=== PATIENT | female | born 1945 | race African-American/Black ===

== ENCOUNTER 2016-05-26 05:24 | Observation (INO) | payer MEDICARE ==
[~2016-05-26] VITALS: Ht 157.5 cm; Wt 81.8 kg
[~2016-05-26 05:24] MED LIST: ACET500C PO; ATOR20TA15 PO; BENEPOW8 PO; DICY10CA12 PO; FLUT1SPR5 EACH NARE; HYDR25TA5 PO; LEVO25TA4 PO; MULT-207 PO; OMEP20TA PO; POLY17S PO; POTA10TA2 PO; [UNRECOGNIZED DRUG - CODE] PO; [UNRECOGNIZED DRUG - OTHER] PO
[2016-05-26] MEDS ORDERED: METOPROLOL TARTRATE 25 MG TAB PO PRN (06:15)
[2016-05-26] MEDS ORDERED: LACTATED RINGER'S 1000 ML IV SCH (06:15)
[2016-05-26] MEDS ORDERED: SODIUM CHLORID 0.9% 500 ML IV SCH (06:15)
[2016-05-26] MEDS ORDERED: INSULIN HUMAN REGULAR 1,000 UNITS/10 ML VIAL SQ PRN (06:15)
[2016-05-26] MEDS ORDERED: VANCOMYCIN 1,000 MG/NS 250 ML IV SCH ×2 (06:15)
[2016-05-26 06:48] VITALS: BP 155/77; PULSE 80; RESP 20; TEMP 97.9; O2SAT 100
[2016-05-26 06:50] LABS: AUTOMATED NEUTROPHIL # 3.3 TH/MM3 (1.8-7.7); BASOPHIL # 0.1 TH/MM3 (0-0.2); BASOPHIL % 1.5 % (0.0-2.0); EOSINOPHIL # 0.2 TH/MM3 (0-0.4); EOSINOPHIL % 3.1 % (0.0-4.0); HEMATOCRIT 39.2 % (35.0-46.0); HEMO FLAGS DIFF FINAL; LYMPH % 37.6 % (9.0-44.0); LYMPHOCYTE # 2.4 TH/MM3 (1.0-4.8); MEAN CELL VOLUME 95.6 FL (80.0-100.0); MEAN CORPUSCULAR HEMOGLOBIN 31.1 PG (27.0-34.0); MEAN CORPUSCULAR HGB CONC 32.5 % (32.0-36.0); MONO % 7.5 % (0.0-8.0); NEUT % 50.3 % (16.0-70.0); PLATELET COUNT 193 TH/MM3 (150-450); RED BLOOD COUNT 4.09 MIL/MM3 (4.00-5.30); RED CELL DISTRIBUTION WIDTH 14.2 % (11.6-17.2); WHITE BLOOD COUNT 6.5 TH/MM3 (4.0-11.0)
[2016-05-26] MEDS ORDERED: BUPIVACAINE/EPINEPHRINE 0.25% 50 ML VIAL ONE (07:36)
[2016-05-26] MEDS ORDERED: ACETAMINOPHEN 1000 MG/100 ML VIAL IV ONE (08:04)
[2016-05-26] MEDS ORDERED: MIDAZOLAM HCL 2 MG/2 ML VIAL ONE (08:04)
[2016-05-26] MEDS ORDERED: DEXAMETHASONE SOD PHOS 4 MG/ML VIAL ONE (08:05)
[2016-05-26] MEDS ORDERED: FAMOTIDINE 20 MG/2 ML VIAL ONE (08:05)
[2016-05-26] MEDS ORDERED: SUGAMMADEX SODIUM 200 MG/2 ML VIAL IV PUSH ONE ×2 (08:05)
[2016-05-26] MEDS ORDERED: ACETAMINOPHEN/HYDROcodone 325 MG/5 MG TAB PO PRN ×2 (10:00)
[2016-05-26] MEDS ORDERED: Post-op Orders (for Pharmacy) MISC XX ONE (10:00)
[2016-05-26] MEDS ORDERED: diphenhydrAMINE HCL 50 MG/ML VIAL IV PRN (10:00)
[2016-05-26] MEDS ORDERED: NALOXONE HCL 0.4 MG/ML AMP IV PRN (10:00)
[2016-05-26] MEDS ORDERED: DO NOT ADM ANY ANTICOAGULANT DRUGS XX PRN (10:00)
[2016-05-26] MEDS ORDERED: HYDROmorphone HCL PF 1 MG/ML VIAL IV PUSH PRN (10:00)
[2016-05-26] MEDS ORDERED: SODIUM CHLORIDE 0.9% FLUSH 5 ML FLUSH IVF PRN (10:00)
[2016-05-26] MEDS ORDERED: fentaNYL CITRATE 250 MCG/5 ML AMP ONE (10:09)
[2016-05-26] MEDS: LACTATED RINGER'S 1000 ML INJ 1,000 ML IV SCH ×2 (10:30→19:46)
[2016-05-26] MEDS ORDERED: *HYDROmorphone PF 1 MG VIAL PERIprocedural Use ONLY ONE (10:50)
[2016-05-26] MEDS ORDERED: PHENYLEPH/NS 1000 MCG/10 ML SYR IV ONE (12:00)
[2016-05-26] MEDS ORDERED: PROPOFOL 200 MG/20 ML AMP IV ONE (12:00)
[2016-05-26] MEDS ORDERED: LACTATED RINGER'S 1000 ML INJ 1,000 ML IV ONE (12:00)
[2016-05-26] MEDS ORDERED: NEOSTIGMINE 3 MG/3 ML SYR IV ONE (12:00)
[2016-05-26] MEDS ORDERED: ONDANSETRON HCL 4 MG/2 ML VIAL IV PUSH ONE (12:00)
[2016-05-26] MEDS ORDERED: KETOROLAC TROMETHAMINE 30 MG/ML (IVP) VIAL IV PUSH ONE (12:00)
[2016-05-26] MEDS ORDERED: PCA - TOTAL MG MORPHINE DELIVERED PER SHIFT SCH (14:00)
--- NOTE | 2016-05-26 14:41 | EKG ---
Date Performed: 05/26/2016 Time Performed: 06:41:42 PTAGE: 70 years EKG: Sinus rhythm NORMAL ECG Compared to prior tracing no significant change PREVIOUS TRACING : 05/13/2009 15.07 DOCTOR: Parker King Interpretating Date/Time 05/26/2016 14:38:58
[2016-05-26 16:00] VITALS: BP 137/62; PULSE 66; RESP 21; TEMP 97; O2SAT 99
[2016-05-26] MEDS: ONDANSETRON HCL 4 MG/2 ML VIAL IV PUSH PRN (19:03)
[2016-05-26 20:13] VITALS: BP 134/65; PULSE 65; RESP 17; TEMP 96.5; O2SAT 98
[2016-05-26] MEDS: SODIUM CHLORIDE 0.9% FLUSH 5 ML FLUSH IVF SCH (21:00)
[2016-05-27 00:24] VITALS: BP 118/58; PULSE 73; RESP 17; TEMP 97.4; O2SAT 96
[2016-05-27 00:29] VITALS: O2SAT 93
[2016-05-27] MEDS: ONDANSETRON HCL 4 MG/2 ML VIAL IV PUSH PRN (02:32)
[2016-05-27] MEDS: HYDROmorphone HCL 2 MG TAB PO PRN ×2 (02:33→11:51)
[2016-05-27 04:44] VITALS: BP 120/59; PULSE 71; RESP 18; TEMP 98.4; O2SAT 95
[2016-05-27] MEDS: LACTATED RINGER'S 1000 ML INJ 1,000 ML IV SCH (05:46)
[2016-05-27] MEDS: SODIUM CHLORIDE 0.9% FLUSH 5 ML FLUSH IVF SCH (07:17)
[2016-05-27 08:00] VITALS: BP 129/60; PULSE 74; RESP 16; TEMP 99; O2SAT 97
[2016-05-27] MEDS ORDERED: DILA2TAB2 PO (08:27)
[2016-05-27 12:00] VITALS: BP 138/67; PULSE 77; RESP 18; TEMP 98.3; O2SAT 100
--- NOTE | 2016-05-29 21:21 | MP ---
cc: PATIENCE GARCIA M.D. DATE OF SURGERY May 26, 2016 PREOPERATIVE DIAGNOSES 1. Refractory gastroesophageal reflux disease. 2. Small hiatal hernia. POSTOPERATIVE DIAGNOSES 1. Refractory gastroesophageal reflux disease. 2. Small hiatal hernia. PROCEDURE PERFORMED Laparoscopic Haritha fundoplication. SURGEON Patience Garcia MD TIP LENGTH CHECKER Malick Kamara MD SECOND MOTORBOAT MECH[employer]IC INBOARD Araceli Woody. ANESTHESIA General endotracheal. COMPLICATIONS None. INDICATIONS FOR PROCEDURE Ms. Mcpherson is a very pleasant 70-year-old female who had a refractory gastroesophageal reflux disease. She had a fairly extensive and prolonged course of PPIs and was found have chronic reflux changes in her lower esophagus. She underwent further evaluation with a Ellis Chip and found have significant reflux. She was referred for surgical evaluation. The patient seen and evaluated in the office and offered elective Haritha fundoplication. She has also noted have a small hiatal hernia on her EGD. I advised her we could examine and reduce this at the time of surgery. Risks and benefits of the procedure were discussed with her in detail and she was agreeable. DETAILS OF PROCEDURE The patient identified, brought to the operating room and placed supine on the operating table. After adequate general endotracheal anesthesia was achieved, the abdomen was prepped and draped in standard surgical fashion. Supraumbilical space was anesthetized with 0.25% Marcaine. Supraumbilical incision was made. Dissection was carried down to the subcutaneous tissue to the midline fascia. Midline fascia was then incised sharply. A finger was placed in peritoneal cavity without difficulty. Blunt balloon trocar was inserted and the abdomen was insufflated to 15 mm using CO2 gas. Next four 5 mm trocars were placed across the upper abdomen under direct vision after anesthetizing the skin and subcutaneous tissue with 0.25% Marcaine. The Hyacinth flex liver retractor was then used to elevate the left lobe of the liver. The stomach was seen exiting the eber. Attention was first directed to the lesser curvature of stomach where the hepatogastric ligament was taken down up to the level of the right eber. Right eber was clearly identified throughout its length. Once we did this, attention was directed to the greater curvature of the stomach. Along the greater curvature of the stomach, the short gastric vessels were taken down all the way up to the level of the left eber. A small amount of bleeding was noted along the superior pole of the spleen but this was from a small adhesion and it was controlled with the harmonic scalpel. Minimal blood loss occurred during this portion of the procedure. Once we had mobilized both sides of the stomach, attention was directed to the esophagus. Posterior vagus nerve was identified and a small window was made behind the esophagus. The Hyacinth flex Hernandez hook retractor was then placed. Esophagus was elevated up. A posterior window was then made and the fundus of stomach was easily identified. Fundus was easily grasped and pulled up behind the esophagus without any tension or difficulty. Once we did this the then sequentially placed bougies starting at 30, going all the way up to 50 by 4 without any problem. Each bougie was clearly visualized going into the esophagus and stomach. A 50 bougie was then left in place for the wrap. A wrap was then performed using a suture delinquent tax collector assistant and zero Ethibond suture. The wrap was taken with the first two sutures ligating fundus of stomach, anterior esophagus and then the fundus of stomach on the other side. The wrap was under no tension whatsoever. A third suture was then placed inferiorly that was just stomach to stomach. Again the wrap was completely floppy and under no tension. The bougie was then removed. The wrap was then photographed. Hiatal hernia was felt to be small and we did not perform repair at this time. 0.25% Marcaine was injected in the operative field. The spleen area was then re-inspected and there was no bleeding noted. All ports were removed under direct vision. Midline fascia was repaired with 0 Vicryl in [id number] fashion. Skin was closed with 4-0 Vicryl. The patient tolerated the procedure well, was awakened and brought to recovery in stable condition. Patience MD OKSANA Garcia/CHRISTY /10:43 AM /8:33 PM
== END 2016-05-27 12:25 | disposition home or self-care (01) ==
LOC: HSDC 05:24 → HSDI 09:57 → N07B 14:14
PROVIDERS: ADMIT Surgery Trauma Surgery; ATTEND Surgery Trauma Surgery
DX: K21.9 Gastro-esophageal reflux disease without esophagitis (principal); K44.9 Diaphragmatic hernia without obstruction or gangrene; I10 Essential (primary) hypertension; E78.5 Hyperlipidemia, unspecified; Z85.3 Personal history of malignant neoplasm of breast; Z88.1 Allergy status to other antibiotic agents; Z88.5 Allergy status to narcotic agent; Z88.0 Allergy status to penicillin; Z88.8 Allergy status to other drugs, medicaments and biological substances
CPT/HCPCS: 85025; 93005; 94150; G0378; J0131; J1100; J1170; J1885; J2250; J2370; J2405; J2710; J3010; J3370; J7050; J7120